=== PATIENT | female | born 1950 | race Caucasian/White ===

== ENCOUNTER → 2016-09-14 | Outpatient (CLI) | payer OTHER ==
[~2016-09-14] VITALS: Ht 162.6 cm; Wt 58.5 kg
[~2016-09-14] MED LIST: AMBEREN PO; CALCIUM PO; CORRECTOL5 M1 PO; FOLIC ACID1 MG PO; LIDOCAINE35.44 GM TP; METHOTREXATE 22.5 M1 PO; METHOTREXATE PO; MOBIC15 MG PO; MS CONTIN 60 MG60 M1 PO; MS CONTIN15 MG PO; MULTIVITAMINS PO; NEURONTIN 300300 M1 PO; NEURONTIN 300M300 M2 PO; OXYCONTIN PO; OXYCONTIN10 M1 PO; OXYCONTIN10 MG PO; OXYCONTIN20 M1 PO; OXYCONTIN20 MG PO; OXYCONTIN40 MG PO; PERCOCET 10-321 EACH PO; PROBIOTIC1 EAC1 PO; SULFASALAZINE500 M4 PO; VITAMIN B-122500 MCG SL; VITAMIN D1000 UNI1 PO; VOL-CARE RX TA1 EACH PO
--- NOTE | ~2016-09-14 | HPC ---
[facility] [address] [address] PAIN MANAGEMENT CONSULTATION Name: JACOB GONZALEZ Room #: REG [facility].#: [id number] Admission: 09/14/16 Attend Phys: Desirae Ennis MD Discharge: Date of : 54 Report #: [id number] THIS REPORT FOR: //name// CC: Sivan Dow MD DATE OF SERVICE: 09/14/2016 FOLLOWUP COMPLAINT: Things are going reasonably well. FOLLOWUP HISTORY: The patient is a 65-year-old female who has been followed in the pain clinic because of chronic pain associated with arthritis and lumbar radicular pain. She finds that her current medication regimen is helpful. She rates her pain as a 6/10. The weather has been changing rapidly and she has noted some increased discomfort in her arthritic pain. She has pain in her low back, hips, knees, elbows and wrist. Pain is made worse with prolonged sitting as well as with weather changes. PHYSICAL EXAMINATION: Blood pressure 131/76, pulse 76, respiratory rate 16, room air saturations are 100. The patient's height and weight indicate a BMI of 22.1. She feels that her medications are helpful. She has not noticed any sedation as a result of taking the medications. IMPRESSION: 1. Chronic arthritis treated with opioid therapy as well as lumbar radiculopathy 2. History of lumbar radiculopathy. RECOMMENDATIONS: We will continue with the patient's current medical regimen of Percocet 10/325 one p.o. t.i.d. She also used oxycodone one p.o. t.i.d. The patient will follow up in the future as needed. We would like to thank you for letting us participate in her care. We hope she continues to improve. <ELECTRONICALLY SIGNED> By: Dseirae Ennis MD 10/05/16 1018 [id number] [id number] Desirae Ennis MD /nt
[2016-09-14 08:52] VITALS: BP 131/76
== END | disposition home or self-care (01) ==
LOC: PAIN 07:04
DX: M13.88 Other specified arthritis, other site (principal); G89.29 Other chronic pain; M54.16 Radiculopathy, lumbar region

== ENCOUNTER → 2016-11-24 | Outpatient (CLI) | payer OTHER ==
[~2016-11-24] VITALS: Ht 162.6 cm; Wt 61.8 kg
--- NOTE | ~2016-11-24 | HPC ---
[facility] [place] [address] [address] [place] [address] PAIN MANAGEMENT CONSULTATION Name: JACOB GONZALEZ Room #: REG [facility].#: [id number] Admission: 11/24/16 Attend Phys: Desirae Ennis MD Discharge: Date of : 54 Report #: [id number] THIS REPORT FOR: //name// CC: Sivan Dow MD DATE OF SERVICE: 11/24/2016 FOLLOWUP COMPLAINT: Things are going reasonably well. FOLLOWUP HISTORY: The patient is a 65-year-old female who has been followed in the pain clinic because of chronic pain associated with arthritis. She also suffers from lumbar pain. Her current medications continue to be helpful. She finds Percocet helpful. She also uses Lidoderm ointment and notes this has been efficacious as well. She has returned today for renewal of her medications. She has taken the medication as prescribed. She would like to have her medications renewed. PHYSICAL EXAMINATION: Blood pressure is 148/78, pulse 70, respiratory rate 14, room air saturation is 98%, height 5 feet 4 inches, weight 167 kg, and BMI is 23. She has not fallen since we saw her last. IMPRESSION: 1. Chronic arthritis, treated with opioid therapy. 2. Lumbar radiculopathy, stable at this juncture. RECOMMENDATIONS: We will continue with her current medical regimen of Percocet 10/325 one p.o. t.i.d. and Lidoderm ointment 0.5% to apply to the affected joints as directed b.i.d. We would like to thank you for letting us participate in her care. We hope she continues to improve. By: [id number] Desirae Ennis MD /nt
[2016-11-24 10:34] VITALS: BP 148/78
== END ==
LOC: PAIN 07:34
DX: M54.16 Radiculopathy, lumbar region (principal); M19.90 Unspecified osteoarthritis, unspecified site

== ENCOUNTER → 2017-03-04 | Outpatient (CLI) | payer OTHER ==
[~2017-03-04] VITALS: Ht 162.6 cm; Wt 61.7 kg
[2017-03-04 08:28] VITALS: BP 136/73
== END | disposition home or self-care (01) ==
LOC: PAIN 06:52
DX: M54.16 Radiculopathy, lumbar region (principal); M13.80 Other specified arthritis, unspecified site; B02.9 Zoster without complications

== ENCOUNTER → 2017-06-08 | Outpatient (CLI) | payer OTHER ==
[~2017-06-08] VITALS: Ht 160 cm; Wt 62.9 kg
--- NOTE | ~2017-06-08 | HPC ---
[facility] [place] [address] PAIN MANAGEMENT CONSULTATION Name: JACOB GONZALEZ Room #: REG [facility].#: [id number] Admission: 06/08/17 Attend Phys: Desirae Ennis MD Discharge: Date of : 54 Report #: [id number] THIS REPORT FOR: //name// CC: Desirae Dow MD DATE OF SERVICE: 06/08/2017 FOLLOWUP COMPLAINT: Things are going pretty well, but now the winter in coming and will have more pain. FOLLOWUP HISTORY: The patient is a 66-year-old female who has been seen in the pain clinic because of chronic pain associated with arthritis. She continues to have pain and discomfort in the lumbar area. She has pain and discomfort, which is problematic in her hands. She finds that her current medical regimen of oxycodone 10 mg 1 p.o. t.i.d. continued to be efficacious. She has had no problems with them. She would like to have her medications renewed. She states that she keeps her medications in a controlled environment. PHYSICAL EXAMINATION: Blood pressure is 140/80, pulse 64, respiratory rate 16, room air saturation 100%. Height 5 foot 3, weight 138 pounds, BMI is 24. The patient feels that her blood pressure is elevated secondary to talking about President, Bernabe. She continues to complain of some pain and discomfort in her hands as well as pain in the low back area. She has not fallen since we saw her last. IMPRESSION: 1. Chronic arthritis, treated with opioid therapy. 2. Lumbar radicular pain, stable at this juncture. RECOMMENDATION: We will continue with her current regimen of Percocet one p.o. t.i.d. She finds that Lidoderm ointment is helpful as well. She will call us if she has any problems with her medications. We would like to thank you for letting us participate in her care. We hope she continues to improve. <ELECTRONICALLY SIGNED> By: Desirae Ennis MD 06/09/17 0822 [id number] [id number] Desirae Ennis MD /[facility]
[2017-06-08 10:16] VITALS: BP 140/80
== END ==
LOC: PAIN 07:03
DX: M13.88 Other specified arthritis, other site (principal)

== ENCOUNTER → 2017-08-26 | Outpatient (CLI) | payer OTHER ==
[~2017-08-26] VITALS: Ht 162.6 cm; Wt 63.0 kg
--- NOTE | ~2017-08-26 | HPC ---
[facility] [place] [address] PAIN MANAGEMENT CONSULTATION Name: JACOB GONZALEZ Room #: REG [facility].#: [id number] Admission: 08/26/17 Attend Phys: Desirae Ennis MD Discharge: Date of : 54 Report #: [id number] THIS REPORT FOR: //name// CC: WENDY Dow MD DATE OF SERVICE: 08/26/2017 FOLLOWUP COMPLAINT: The medicine is still helpful. FOLLOWUP HISTORY: The patient is a 66-year-old female who has been followed in the pain clinic because of chronic pain associated with arthritis. She continues to find that this medication is helpful. She continues to note changes associated with chronic arthritis. It involves her hands and her fingers. Use of these medications enable her to engage in activities which would be much more difficult without their use. She continues to be followed by her arthritis physician at [facility]. States that her medications are kept in a guarded area. She is aware of the possible complications associated with opioid medications. They include tolerance and addiction. She feels that her medications are working well and provide her ability to maintain a reasonable lifestyle given her current arthritic situation. ALLERGIES: PLAQUENIL. MEDICATIONS: Percocet 10/325 one p.o. q. 8 hours p.r.n., Lidoderm ointment topical b.i.d., bisacodyl 5 mg as needed, lactobacillus probiotic, vitamin B12, methotrexate 2.5 mg, gabapentin 300 mg 4 times daily, vitamin D3, Mobic 15 mg, sulfasalazine 500 mg b.i.d., multivitamin, folic acid. PHYSICAL EXAMINATION: HEENT: Unremarkable. NECK: Without adenopathy. HEART: Regular rate. ABDOMEN: Nontender. EXTREMITIES: The patient has findings consistent with arthritic changes in the distal phalanges. Rates her pain as a 4/5. Has some complaints of pain and discomfort in her low back, hips, bilateral knees, left elbow and left wrist associated with arthritis. IMPRESSION: 1. Chronic arthritis treated with opioid therapy. 2. Lumbar radicular pain, stable at this juncture. RECOMMENDATIONS: We discussed treatment options with the patient. We discussed [address] [address] PAIN MANAGEMENT CONSULTATION Name: JACOB GONZALEZ Room #: [facility]#: [id number] Admission: 08/26/17 Attend Phys: Desirae Ennis MD Discharge: Date of : 54 Report #: [id number] the CDC position on use of opioid medications on a chronic basis. The patient is within the guidelines of the CDC's recommendation. She finds that the medications are helpful. She keeps them in a controlled environment. Again, she is aware of the possible complications of opioid addiction and tolerance which could develop. We would like to thank you for letting us participate in her care. Hope she continues to improve. <ELECTRONICALLY SIGNED> By: Desirae Ennis MD 09/07/17 0837 [id number] [id number] Desirae Ennis MD /[facility]
[2017-08-26 08:08] VITALS: BP 123/56
== END ==
LOC: PAIN 07:08
DX: M54.16 Radiculopathy, lumbar region (principal); M13.852 Other specified arthritis, left hip; M13.851 Other specified arthritis, right hip; M13.862 Other specified arthritis, left knee; M13.861 Other specified arthritis, right knee; M13.822 Other specified arthritis, left elbow; M13.832 Other specified arthritis, left wrist; F11.90 Opioid use, unspecified, uncomplicated

== ENCOUNTER → 2017-11-30 | Outpatient (CLI) | payer OTHER ==
[~2017-11-30] VITALS: Ht 162.6 cm; Wt 65.0 kg
--- NOTE | ~2017-11-30 | HPC ---
[facility] [place] [address] PAIN MANAGEMENT CONSULTATION Name: JACOB GONZALEZ Room #: REG [facility]..#: [id number] Admission: 11/30/17 Attend Phys: Desirae Ennis MD Discharge: Date of : 54 Report #: [id number] THIS REPORT FOR: //name// CC: Sivan Dow MD DATE OF SERVICE: 11/30/2017 FOLLOWUP COMPLAINT: Here for medications and things are still going well. FOLLOWUP HISTORY: The patient is a 66-year-old female. As you recall, she has significant chronic arthritis. She continues to find medications helpful. Finds that the gabapentin as well as Percocet are quite helpful and enable her to engage in activities of daily living, she would not be able to without their use. Denies any problems with her medication. States that she is taking them as prescribed. They do not cause any problems with her sensorium. No GI complaints. She has had no problems with tolerance or addiction. She is aware of the media discussion of opioid medications and their problems. She feels that these medications are being used effectively by her and that they provide her a reasonable improvement in the lifestyle, she would not be able to enjoy without them. ALLERGIES: PLAQUENIL. MEDICATIONS: Percocet 10/325 one p.o. q. 8 hours p.r.n., Lidoderm ointment/topical b.i.d., bisacodyl 5 mg as needed, lactobacillus probiotic, vitamin B12, methotrexate 2.5 mg, gabapentin 300 mg q.i.d., vitamin D3, Mobic 15 mg, sulfasalazine 500 mg b.i.d., multivitamin, folic acid. PAIN CLINIC ASSESSMENT: 1. History of osteoarthritis/the patient is being treated for rheumatoid arthritis in the upper extremity, right lower extremity, left upper as well as left lower extremities. 2. Height 5 feet 4 inches, weight 143 pounds, BMI is 26. 3. Vital signs: Blood pressure 147/87, pulse 63, respiratory rate 14, room air saturation 99%. 4. Pain intensity: 02/05. 5. Fall risk: The patient has not fallen in the last 3 months. 6. Blood thinner: The patient is not on a blood thinner. 7. Hypertension: The patient is not being treated for hypertension. 8. Opioid therapy: The patient is on an opioid contract and receives her medications from only one pain clinic, which is ours. 9. Risk assessment tool is zero, which is low for opioid use. 10. [place] [address] PAIN MANAGEMENT CONSULTATION Name: JACOB GONZALEZ Room #: REG [facility]#: [id number] Admission: 11/30/17 Attend Phys: Desirae Ennis MD Discharge: Date of : 54 Report #: [id number] 11. Recreational drug use: Denies ever using recreational drugs. 12. Tobacco: Never smokes cigarettes. 13. Alcohol: Denies use of alcoholic beverages. PHYSICAL EXAMINATION: GENERAL: The patient is a well-developed, white female. Appears her stated age. She is alert and oriented x 3. Affect appears appropriate. Speech is smooth. HEENT: Normocephalic, atraumatic. Extraocular eye muscles intact. Hearing is within normal limits. Sclerae are normal. Mucous membranes are moist. NECK: Without adenopathy or JVD. Good range of motion. HEART: Regular rate. LUNGS: Clear. ABDOMEN: Nontender. MUSCULOSKELETAL: Without significant scoliosis, kyphosis or lordosis. The patient does have some changes consistent with rheumatoid arthritis involving her hands. Upper muscle strength is judged to be 5/5 and muscle strength is 4+/5 in the upper muscles area. Low back: The patient does have some pain and discomfort, which she sometimes notes pain with radiating down into the lumbar region. Muscle strength is judged to be 5/5 in the lower extremities. IMPRESSION: 1. Chronic arthritis treated with opioid therapy and with biologic agents. 2. Lumbar radicular pain, stable at this juncture. She has undergone epidural steroid injections in the past. RECOMMENDATIONS: We discussed treatment options with the patient. We will continue with her current medications. We have discussed the CDC is positioned on opioid medications. The patient states that she is taking the medication as prescribed, does not have any problems with them. She has clear sensorium with their use. Finds that they enable her to engage in activities of daily living she would not be able to without their use. Denies any GI problems. She keeps her medications in a controlled environment given that she has some young grandchildren who like to live with her and visit her. She will call us if she has any problems with her medications. We would like to thank you for letting us participate in her care. We hope she continues to improve. By: [id number] Desirae Ennis MD /[facility]
[2017-11-30 10:38] VITALS: BP 147/87
== END ==
LOC: PAIN 06:58
DX: M19.90 Unspecified osteoarthritis, unspecified site (principal); M54.16 Radiculopathy, lumbar region; F11.90 Opioid use, unspecified, uncomplicated; Z88.8 Allergy status to other drugs, medicaments and biological substances

== ENCOUNTER → 2018-03-03 | Outpatient (CLI) | payer OTHER ==
[~2018-03-03] VITALS: Ht 162.6 cm; Wt 63.0 kg
--- NOTE | ~2018-03-03 | HPC ---
[facility] [place] [address] PAIN MANAGEMENT CONSULTATION Name: JACOB GONZALEZ Room #: REG [facility].#: [id number] Admission: 03/03/18 Attend Phys: Desirae Ennis MD Discharge: Date of : 54 Report #: [id number] THIS REPORT FOR: //name// CC: WENDY Dow MD DATE OF SERVICE: 03/03/2018 FOLLOWUP COMPLAINT: Here for medications. FOLLOWUP HISTORY: The patient is a 67-year-old female who has been followed in the Pain Clinic. As you recall, she has significant chronic arthritis. She finds her medications helpful. Weather has been greater than 90 degrees for quite some time. States that she finds the warm weather of the summer much more pleasant than the cold weather in the winter. Finds that the cold weather makes her joints and arthritic changes more problematic. She would like to continue with her medications. She has no problems with the medications. She keeps her medications in a guarded area. She does have some young grandchildren. She finds the medications are still helpful. She is aware of the possible complications with opioid medications of addiction. She finds that they enable her to engage in activities of daily living and are not causing any problems with her mentation. ALLERGIES: PLAQUENIL. CURRENT MEDICATIONS: Percocet 10/325 one p.o. q. 8 hours p.r.n., Lidoderm/topical b.i.d., bisacodyl 5 mg as needed, lactobacillus probiotic, vitamin B12, methotrexate 2.5 mg, gabapentin 300 mg q.i.d., vitamin D3, Mobic 15 mg, sulfasalazine 500 mg b.i.d., multivitamin, folic acid. PAIN CLINIC ASSESSMENT: 1. History of osteoarthritis: The patient is being treated for rheumatoid arthritis involving the upper extremities, right lower extremity, left lower extremity as well as lower extremities. 2. Height 5 feet 4 inches, weight 139 pounds, BMI is 23.8. 3. Vital signs: Blood pressure 129/74, pulse 58, respiratory rate 14, room air saturation 98%. 4. Pain intensity: 4/10. 5. Fall risk: The patient has not fallen. 6. Blood thinner: The patient is not on any blood thinning medication. 7. History of hypertension: The patient is not using an antihypertensive medication. 8. Opioids greater than 6 weeks: The patient is using her medication as prescribed and gets [place] [address] PAIN MANAGEMENT CONSULTATION Name: JACOB GONZALEZ Room #: [facility]#: [id number] Admission: 03/03/18 Attend Phys: Desirae Ennis MD Discharge: Date of : 54 Report #: [id number] 9. Risk assessment tool: Low for use of opioid medication. 10. Functional assessment tool: 34/70 in the past. 11. Recreational drug use: The patient denies use of recreational drugs. 12. Tobacco: The patient never smoked. 13. Alcohol: The patient denies use of alcoholic beverages. PHYSICAL EXAMINATION: GENERAL: The patient is a well-developed, well-nourished, white female. She appears her stated age. She is alert and oriented x 3. Affect is appropriate. Speech is fluent. HEENT: Normocephalic, atraumatic. Extraocular eye muscles intact. Hearing within normal limits. Sclerae noninjected. Mucous membranes are moist. NECK: Without adenopathy or JVD. Good range of motion. HEART: Regular rate, S1 and S2. ABDOMEN: Nontender. LUNGS: Clear to auscultation. MUSCULOSKELETAL: Without significant scoliosis, kyphosis or lordosis. Upper hands are consistent with changes with arthritis, rheumatoid, involving her hands. Upper muscle strength is judged to be 5/5 for the major muscle groups in the upper extremity. Low back: The patient does have some pain and discomfort, which radiates down into her back and lumbar region. IMPRESSION: 1. Chronic arthritic pain, treated with opioid therapy and with biologic agents. 2. Lumbar radicular pain, stable at this juncture. RECOMMENDATIONS: We discussed treatment options with the patient. We will continue with her current medication. She will continue with her medication as prescribed. If she has any problems, she will call us. She will continue to remain active. We would like to thank you for letting us participate in her care. We hope she continues to improve. By: [id number] Desirae Ennis MD /nt
[2018-03-03 07:56] VITALS: BP 129/74
== END ==
LOC: PAIN 06:48
DX: M19.90 Unspecified osteoarthritis, unspecified site (principal); G89.29 Other chronic pain; M54.5 Low back pain

== ENCOUNTER → 2018-06-02 | Outpatient (CLI) | payer OTHER ==
[~2018-06-02] VITALS: Ht 162.6 cm; Wt 65.9 kg
--- NOTE | ~2018-06-02 | HPC ---
[facility] [place] [address] PAIN MANAGEMENT CONSULTATION Name: JACOB GONZALEZ Room #: REG [facility].#: [id number] Admission: 06/02/18 Attend Phys: Desirae Ennis MD Discharge: Date of : 54 Report #: [id number] THIS REPORT FOR: //name// CC: Desirae Dow DATE OF SERVICE: 06/02/2018 FOLLOWUP HISTORY: The patient is a 67-year-old female who has been followed in the pain clinic because of chronic arthritic changes. She does see a workers compensation legal secretary Sivan Johnson. Overall, she feels that things are going reasonably well. She has noted some changes because of the fluctuation in the temperature. It has gone from 80 degrees to 50 degrees and notes some discomfort with that. Overall, she feels that her medications are working reasonably well. She has had no complications with their use and would like to continue. She notes that her grandchild has had some seizures. The patient has been hospitalized in the process of trying to evaluate with the seizure activities. She had had seizures when she was born. She was somewhat premature. Overall, things are going reasonably well and they hope for the best. ALLERGIES: PLAQUENIL. MEDICATIONS: Percocet 10 mg one p.o. q. 8 hours p.r.n., Lidoderm/topical b.i.d., bisacodyl 5 mg as needed, lactobacillus probiotic, vitamin B12, methotrexate 2.5 mg, gabapentin 300 mg q.i.d., vitamin D3, Mobic 15 mg, sulfasalazine 500 mg b.i.d., multivitamin, folic acid. PAIN CLINIC ASSESSMENT/PQRS: 1. History of osteoarthritis. The patient is not being treated for osteoarthritis. She has been treated for rheumatoid arthritis with involvement of the upper extremity, right lower extremity, left lower extremity. 2. Height 5 feet 4 inches, weight 145 pounds, BMI is 24.9. 3. Vital Signs: Blood pressure 122/72, pulse 67, respiratory rate 14, room air saturation 98%. 4. Pain intensity 01/05. 5. Fall risk. The patient has not fallen in the last 3 months. 6. Blood thinner. The patient is not on a blood thinning medication. 7. Hypertension. The patient is not being treated for hypertension. 8. Opioid therapy greater than 6 weeks. The patient is being treated with opioid medications. 9. Risk assessment tool, low for opioid use. 10. Functional assessment 3470. 11. Recreational drug use. The patient has never used recreational drugs. 12. Tobacco: The patient has never smoked. 13. Alcohol: The patient denies use of alcoholic beverages on a regular basis. [address] [address] PAIN MANAGEMENT CONSULTATION Name: JACOB GONZALEZ Room #: REG [facility]#: [id number] Admission: 06/02/18 Attend Phys: Desirae Ennis MD Discharge: Date of : 54 Report #: [id number] PHYSICAL EXAMINATION: GENERAL: The patient is a well-developed, well-nourished white female. Appears her stated age. She is alert and oriented x 3. Her affect is appropriate. Speech is fluent. HEENT: Normocephalic, atraumatic. Extraocular eye muscles intact. Hearing is within normal limits. Sclerae nonicteric. Mucous membranes are moist. NECK: Without adenopathy or JVD. Good range of motion. HEART: Regular rate. S1, S2. ABDOMEN: Not tender. Bowel sounds problems are positive. LUNGS: Clear to auscultation. MUSCULOSKELETAL: Without significant scoliosis, kyphosis or lordosis. Upper extremity, hands are consistent with arthritic changes with some ulnar deviation. Upper extremity muscle strength is judged to be 5/5 for the major muscle groups in the upper extremity. Low back, the patient has a history of some pain and discomfort, which occasionally radiates down to her back and lumbar region. IMPRESSION: 1. Chronic lumbar chronic arthritic pain associated with rheumatoid arthritis, being treated with ____ and by her workers compensation legal secretary. 2. Lumbar radicular pain, stable at this juncture. RECOMMENDATIONS: We discussed treatment options with the patient. We will continue with her current medications. A script for medication has been written. She will call us if she has any concerns. We hope she continues to improve. Hopefully, her grandkids continues to improve with less seizure activity. <ELECTRONICALLY SIGNED> By: Desirae Ennis MD 06/12/18 1125 [id number] [id number] Desirae Ennis MD /nt
[2018-06-02 08:54] VITALS: BP 122/72
== END ==
LOC: PAIN 06:44
DX: M54.16 Radiculopathy, lumbar region (principal); G89.29 Other chronic pain; M45.6 Ankylosing spondylitis lumbar region; Z79.899 Other long term (current) drug therapy

== ENCOUNTER → 2018-08-18 | Outpatient (CLI) | payer OTHER | LOC: RAD 08-14 12:10 | DX: Z12.31 Encounter for screening mammogram for malignant neoplasm of breast (principal) ==

== ENCOUNTER → 2018-09-01 | Outpatient (CLI) | payer OTHER ==
[~2018-09-01] VITALS: Ht 162.6 cm; Wt 64.1 kg
--- NOTE | ~2018-09-01 | HPC ---
[facility] [place] [address] PAIN MANAGEMENT CONSULTATION Name: JACOB GONZALEZ Room #: REG [facility] M.R.#: [id number] Admission: 09/01/18 Attend Phys: Desirae Ennis MD Discharge: Date of : 54 Report #: [id number] THIS REPORT FOR: //name// CC: Desirae Dow MD DATE OF SERVICE: 09/01/2018 FOLLOWUP COMPLAINT: Here for medication renewal. HISTORY: The patient is a 67-year-old female who has been followed in the pain clinic because of chronic arthritis. As you recall, she suffers from rheumatoid arthritis. She is followed by Dr. Sivan Johnson at [facility]. She finds that her medications overall are going reasonably well. She would like to continue with her medications. She has had no complications at this juncture. She overall feels that things are going reasonably well and would like to have her medications. ALLERGIES: PLAQUENIL. CURRENT MEDICATIONS: Percocet 10 mg 1 p.o. q.8 hours, Lidoderm/topical b.i.d., bisacodyl 5 mg p.r.n., lactobacillus probiotic, multivitamin B12, methotrexate 2.5 mg, gabapentin 300 mg q.i.d., vitamin D3, Mobic 15 mg, sulfasalazine 500 mg b.i.d., multivitamin, folic acid. PAIN CLINIC ASSESSMENT/PQRS: 1. History of osteoarthritis. The patient is not being treated for osteoarthritis. The patient is being treated for rheumatoid arthritis with involvement of her upper extremity, right lower extremity, left lower extremity. 2. Height 5 feet 4 inches, weight 141 pounds, BMI is 24. 3. Vital Signs: Blood pressure 124/65, pulse 68, respiratory rate 18, room air saturation 100%. 4. Pain intensity /10. 5. Fall history. The patient has not fallen in the last 3 months. 6. Blood thinner. The patient is not on a blood thinning medication. 7. Hypertension. The patient is not being treated for hypertension. 8. Opioids greater than 6 weeks. The patient receives her medications from [facility], the pain clinic for opioids. 9. Risk assessment tool, low for opioid use. 10. Functional assessment tool . 11. Recreational drug use. The patient denies she has recreational drugs. 12. Tobacco: The patient denies use of tobacco. 13. Alcohol: The patient denies use of alcoholic beverages. PHYSICAL EXAMINATION: [facility] [address] [place] [address] PAIN MANAGEMENT CONSULTATION Name: JACOB GONZALEZ Room #: REG [facility]#: [id number] Admission: 09/01/18 Attend Phys: Desirae Ennis MD Discharge: Date of : 54 Report #: [id number] GENERAL: The patient is a well-developed, well-nourished white female. Appears her stated age. She is alert and oriented x 3. Affect is appropriate. Speech is fluent. The patient's granddaughter who is about 8 or 9 years old and is quite pleasant is with her. HEENT: Normocephalic, atraumatic. Extraocular eye muscles intact. Sclerae nonicteric. Mucous membranes are moist. NECK: Without adenopathy or JVD. HEART: Regular rate. S1, S2. ABDOMEN: Nontender. Bowel sounds present. LUNGS: Clear to auscultation without rhonchi. MUSCULOSKELETAL: Without significant scoliosis, kyphosis or lordosis. Upper extremity muscle strength is 4+/5 for the upper extremities. The patient's hands are consistent with arthritic changes with some ulnar deviation. The patient has a history of low back pain, which is not problematic and there are no complaints of this today. IMPRESSION: 1. Chronic lumbar radicular pain associated with rheumatoid arthritis. 2. Lumbar pain, stable. RECOMMENDATIONS: We discussed the use of opioid medications. The patient is aware that opioid medications can be problematic over a period of time secondary to development of addiction as well as tolerance. She keeps her medications out of the way. She has grandkids and is aware of the possible complications of their use. A script for her medications have been written. She will follow up in the future as needed. We would like to thank you for letting us participate in her care. We hope she continues to improve. By: [id number] Desirae Ennis MD /nt
[2018-09-01 08:28] VITALS: BP 124/65
--- NOTE | 2018-09-01 08:29 | NUR ---
Pain Clinic Assessment: 1. History of Osteoarthritis: Left Lower Extremity Right Lower Extremity History of Rheumatoid Arthritis: Left Upper Extremity Right Upper Extremity Left Lower Extremity Right Lower Extremity 2. Height: 5 ft. 4 in. 162.6 cm. Weight: 141.4 lb. oz. 64.139 kg. Patient's BMI: 24.3 3. Vital Signs: BP: 124/65 Pulse: 68 Resp: 18 Temp: 02 Sat: 100 ECG Mon: 4. Pain Intensity: 6 5. Fall Risk: Dizziness: Needs help standing or walking: Fallen in the last 3 months: Fall risk comments: 6. Patient on Blood Thinner: None 7. History of Hypertension: N 8. Opioid Therapy greater than 6 weeks: Y Opiate Contract Signed: 03/05/16 9. Risk Assessment Tool Provided: 0/LOW 10. Functional Assessment Tool: / 11. Recreational Drug Use: Never Drug Type: Tobacco Use: Never Smoker Tobacco Type: Amount or Packs/day: How Many Years: Alcohol Use: Past use Frequency: Quant:
== END ==
LOC: PAIN 07:15
DX: M54.16 Radiculopathy, lumbar region (principal); M06.9 Rheumatoid arthritis, unspecified; Z79.899 Other long term (current) drug therapy

== ENCOUNTER → 2018-12-01 | Outpatient (CLI) | payer OTHER ==
[~2018-12-01] VITALS: Ht 162.6 cm; Wt 64.5 kg
--- NOTE | ~2018-12-01 | HPC ---
[facility] [address] [place] [address] PAIN MANAGEMENT CONSULTATION Name: JACOB GONZALEZ Room #: REG [facility] M.R.#: [id number] Admission: 12/01/18 ������������������ Attend Phys: Desirae Ennis MD Discharge: ������������������ Date of : 54 Report #: [id number] THIS REPORT FOR: //name// CC: Desirae Dow MD DATE OF SERVICE: 12/01/2018 CHIEF COMPLAINT: Here for medication renewal, things are going reasonably well. HISTORY: The patient is a 67-year-old female. She has been followed in the pain clinic for quite some time. As you recall, she suffers from arthritis. Has some arthritic changes from rheumatoid in her hands. Also, has had some problems with her back. She has undergone epidural steroid injections in the distant past. She continues to have pain, which is still problematic. She feels that use of oxycodone medications enable her to stay quite active. Has pain in her hips posteriorly and has pain that radiates down into her knee. Also, has bilateral knee pain. Has some right low back discomfort. ALLERGIES: PLAQUENIL. CURRENT MEDICATIONS: Percocet 10 mg 1 p.o. q. 8 hours p.r.n., Lidoderm/topical b.i.d., bisacodyl 5 mg p.r.n., lactobacillus probiotic, multivitamin, vitamin B12, methotrexate 2.5 mg, gabapentin 300 mg q.i.d., vitamin D3, Mobic, sulfasalazine 500 mg b.i.d., multivitamins, and folic acid. PAIN CLINIC ASSESSMENT/PQRS: 1. Osteoarthritis. The patient has some arthritic changes in her low back area. She is currently being treated for rheumatoid arthritis. Has upper extremity involvement as well as some lower extremity problems: 2. Height 5 feet 4 inches, weight 142 pounds, BMI is 24.4. 3. Vital signs: Blood pressure 150/84, pulse 74, respiratory rate 16, room air saturation 100%. 4. Pain intensity 5-6/10. 5. Fall risk. The patient has not fallen in the last 3 months. 6. Blood thinner. The patient is not on a blood thinning medication. 7. Hypertension. The patient is not being treated for hypertension. 8. Opioids greater than 6 weeks. The patient [facility]. 9. Risk assessment tool, low for opioid use. 10. Functional assessment tool 34/70. 11. Recreational drug use. The patient denies use of recreational drugs. 12. Tobacco: The patient denies use of tobacco. 13. Alcohol: The patient denies use of alcoholic beverages. [facility] [address] [place] [address] PAIN MANAGEMENT CONSULTATION Name: JACOB GONZALEZ Room #: REG [facility] Chandu#: [id number] Admission: 12/01/18 ������������������ Attend Phys: Desirae Ennis MD Discharge: ������������������ Date of : 54 Report #: [id number] PHYSICAL EXAMINATION: GENERAL: The patient is a well-developed, well-nourished white female, appears her stated age. She is alert and oriented x 3. Her affect is appropriate. Speech is fluent. HEENT: Normocephalic, atraumatic. Extraocular eye muscles intact. Sclerae nonicteric. Mucous membranes are moist. NECK: Without adenopathy or JVD. HEART: Regular rate. ABDOMEN: Nontender. Bowel sounds present. LUNGS: Clear to auscultation. MUSCULOSKELETAL: Without significant scoliosis, kyphosis, or lordosis. Upper extremity muscle strength is judged to be 4+/5 for the upper extremities. The patient has some changes in her hand consistent with arthritic changes with some ulnar deviation of her fingers. History of low back pain. The patient has some pain in lower portion of her back as well as bilateral knee complaints. IMPRESSION: 1. Lumbar radicular pain associated with rheumatoid arthritis. 2. Chronic pain in the knees. 3. Lumbar pain, stable. RECOMMENDATIONS: We discussed treatment options with the patient. At this juncture, we will continue with her opioid medication. She feels this medication enables her to engage in activities, she would not be able to. She is aware of the problems with opioid medications. She has weaned her off of OxyContin. She uses Percocet. Overall, she feels that is doing a reasonable job in controlling her pain. She keeps her medications in a guarded area. She has some young grandchildren as well as young people around her home. States that she keeps her medications locked up. She is concerned about their safety as the number of cases of children using opioid medications from parents is problematic. A script for her medications have been written. She will follow up in the future as needed. She will continue with the Percocet one p.o. t.i.d. A total of 3 months medication has been written. We would like to thank you for letting us participate in her care. We hope she continues to improve. ��������������������������������������������� ���������������������������������������� By: ��������������������������������������������� [id number] Desirae Ennis MD /SYDNEE
[2018-12-01 08:07] VITALS: BP 150/84
--- NOTE | 2018-12-01 08:14 | NUR ---
Pain Clinic Assessment: 1. History of Osteoarthritis: Left Lower Extremity Right Lower Extremity History of Rheumatoid Arthritis: Left Upper Extremity Right Upper Extremity Left Lower Extremity Right Lower Extremity 2. Height: 5 ft. 4 in. 162.6 cm. Weight: 142.2 lb. oz. 64.501 kg. Patient's BMI: 24.4 3. Vital Signs: BP: 150/84 Pulse: 74 Resp: 16 Temp: 02 Sat: 100 ECG Mon: 4. Pain Intensity: 5-6 5. Fall Risk: Dizziness: N Needs help standing or walking: N Fallen in the last 3 months: N Fall risk comments: 6. Patient on Blood Thinner: None 7. History of Hypertension: N 8. Opioid Therapy greater than 6 weeks: Y Opiate Contract Signed: 03/05/16 9. Risk Assessment Tool Provided: 0/LOW 10. Functional Assessment Tool: 34/ 11. Recreational Drug Use: Never Drug Type: Tobacco Use: Never Smoker Tobacco Type: Amount or Packs/day: How Many Years: Alcohol Use: Past use Frequency: Quant:
== END ==
LOC: PAIN 06:50
DX: M06.88 Other specified rheumatoid arthritis, vertebrae (principal); I10 Essential (primary) hypertension; G89.29 Other chronic pain; M25.561 Pain in right knee; M25.562 Pain in left knee; Z88.8 Allergy status to other drugs, medicaments and biological substances; Z79.899 Other long term (current) drug therapy

== ENCOUNTER → 2019-02-21 | Outpatient (CLI) | payer OTHER ==
[~2019-02-21] VITALS: Ht 162.6 cm; Wt 65.1 kg
[2019-02-21 08:12] VITALS: BP 120/59
--- NOTE | 2019-02-21 08:24 | NUR ---
Pain Clinic Assessment: 1. History of Osteoarthritis: DENIES History of Rheumatoid Arthritis: Left Upper Extremity Right Upper Extremity Left Lower Extremity Right Lower Extremity 2. Height: 5 ft. 4 in. 162.6 cm. Weight: 143.6 lb. oz. 65.136 kg. Patient's BMI: 24.6 3. Vital Signs: BP: 120/59 Pulse: 62 Resp: 14 Temp: 02 Sat: 100 ECG Mon: 4. Pain Intensity: 7 5. Fall Risk: Dizziness: N Needs help standing or walking: N Fallen in the last 3 months: N Fall risk comments: 6. Patient on Blood Thinner: None 7. History of Hypertension: N 8. Opioid Therapy greater than 6 weeks: Y Opiate Contract Signed: 03/05/16 9. Risk Assessment Tool Provided: 0/LOW 10. Functional Assessment Tool: 11. Recreational Drug Use: Never Drug Type: Tobacco Use: Never Smoker Tobacco Type: Amount or Packs/day: How Many Years: Alcohol Use: Past use Frequency: Quant:
--- NOTE | 2019-02-22 14:11 | HPC ---
[facility] [address] [address] PAIN MANAGEMENT CONSULTATION Name: JACOB GONZALEZ Room #: REG [facility] MBimal.#: [id number] Admission: 02/21/19 ������������������ Attend Phys: Sasha Lawson Discharge: ������������������ Date of : 54 Report #: [id number] THIS REPORT FOR: //name// CC: Sasha Lawson Mike Dow DATE OF SERVICE: 02/21/2019 CHIEF COMPLAINT: Chronic low back pain and osteoarthritis. HISTORY OF PRESENT ILLNESS: This is a very pleasant 68-year-old female who returns to the pain clinic today for refill of her medications. She uses these to help with her chronic low back pain and her arthritis. She tells me recently that her pain has increased in her lower back on the right side. She feels that it radiates over the top of her hip into her right thigh down to her right calf. She tells me she has made an appointment with Dr. Coffey, her neurosurgeon for later in February. She believes that he will order an MRI. She is hopeful that she will not have to have further surgery, but she will await that visit. Her pain score today is 7/10, mostly had numbness and burning in her leg and achy feeling in her lower back. She tells me her pain is worse with sitting, rainy weather and cold, but better with her medications and she is better in the morning. She denies any problems with constipation that is not controlled with her [id number] medications. ALLERGIES: PLAQUENIL. CURRENT MEDICATIONS: Oxycodone 10/325 three times a day, lidocaine ointment, Correctol as needed, probiotic, vitamin B12, methotrexate, gabapentin 300 mg 1 in the morning, 2 at noon, and 1 at night, meloxicam, sulfasalazine, multivitamin and folic acid. PATIENT'S PQRS: She has osteoarthritis in her lumbar spine and she is also being treated for rheumatoid arthritis in her upper extremities. Height is 5 feet 4, weight is 143, BMI is 24. Vital signs 120/59, pulse of 62, respirations 14, oxygen sat is 100. Pain score is 7/10. Fall risk. Denies dizziness, does not need help walking or standing, has not fallen in the last 3 months. She is not on any blood thinners, does not take medicine for hypertension. Opioid therapy is greater than 6 weeks; therefore, an opiate signed contract is on the chart. Her risk assessment tool is low. Functional assessment is 34/70. Recreational drug use, she denies. She is not a smoker and does not drink alcohol. According to the prescription monitoring system, the patient is filling appropriately for her medications. She is due next week to have them filled again. There is a recent drug screen on the chart that is appropriate for the medications that we prescribed. [address] [address] PAIN MANAGEMENT CONSULTATION Name: JACOB GONZALEZ [id number] Admission: 02/21/19 ������������������ Attend Phys: Sasha Lawson Discharge: ������������������ Date of : 54 Report #: [id number] PHYSICAL EXAMINATION: GENERAL: This is a well-developed, well-nourished white female, who appears her stated age. She is alert and orientated. Her affect is appropriate and her speech is fluent. HEENT: Normocephalic, atraumatic. Extraocular eye muscles are intact. Mucous membranes are moist. NECK: Without adenopathy or JVD. MUSCULOSKELETAL: Without significant scoliosis, kyphosis, or lordosis. Upper extremity strength judged to be 4/5 in her upper extremities. She has arthritic changes in her hands with some ulnar deviation of her fingers, complains of right lumbar back pain today radiation into her hip down to anterior portion of her right thigh into her calf with numbness and burning present. Lower extremity strength judged to be 5/5 in all major muscle groups. The patient walks with a slightly antalgic gait. IMPRESSION: 1. Lumbar radiculopathy. 2. Rheumatoid arthritis. 3. Chronic pain in her bilateral knees. 4. Medication management under terms of written opioid agreement. We reviewed the fact that opiate medications are being used to provide analgesia adequate to support activities of daily living, not attempting to achieve a specific pain score on the 0-10 Visual Analog Scale. The current opiate medications are providing sufficient analgesia to allow the patient to participate in activities of daily living. The patient is not exhibiting any aberrant behavior suggestive of drug diversion. The patient is not having any adverse reactions to medications. The patient is not suffering from daytime somnolence or mental acuity changes. The patient is managing opiate-induced constipation with appropriate [id number] agents and dietary considerations. The patient was counseled on concern for caution with operating a motor vehicle while using opiate medications. A physical exam was performed and the patient's functional status was evaluated. All patients with back pain were advised against the bed rest greater than 4 days and were advised to return to normal activities. Pain score assessment was noted and the treatment plan was reviewed with the patient. All current medications, both prescribed and OTC were reviewed and reconciled on the electronic medical record. Tobacco screening was accomplished and smoking cessation was advised when indicated. BMI was noted and diet/exercise modification was recommended for all patients following outside normal parameters. I reviewed with the patient today their responsibilities to safeguard prescription medications, reviewed their responsibility to utilize medications [facility] [address] [place] [address] PAIN MANAGEMENT CONSULTATION Name: JACOB GONZALEZ Room #: REG [facility] M.Olivia.#: [id number] Admission: 02/21/19 ������������������ Attend Phys: Sasha JIMMY Lawson Discharge: ������������������ Date of : 54 Report #: [id number] only as prescribed by the physician. They are to seek and receive pain medications only from 1 physician group ( [facility]). They are to use 1 pharmacy and keep the clinic informed if they change pharmacies. Their responsibilities include making followup visits in a timely fashion and to avoid abrupt discontinuation of medication usage. Their responsibilities further include bringing their medications (bottles from the pharmacy with residual pills) to the visit for possible confirmation of pill counts and the patient understands it is their responsibility to submit to random drug screens to ensure both that the medications prescribed are present, and that no other controlled substances are present. All prescriptions provided today were generated electronically. PLAN: 1. We discussed treatment options with the patient today. At this time, she would like to continue her oxycodone medications. Scripts given for Percocet 10/325 t.i.d., #90 for today and 4-week release and 8-week release. This places the patient at the low end of the CDC guidelines; therefore, she is seen every 3 months in the Pain Clinic. 2. I informed the patient that if Dr. Coffey, her neurosurgeon does feel that an epidural would be beneficial,Dr. Ennis would be happy to perform that. It has been years since she had an epidural, which at that time were not helpful, but since her symptoms have changed, she may find some benefit of this. The patient agrees. She will make an appointment if he thinks that is needed. 3. Dr. Nelson Ennis did see the patient and collaborated care today. ��������������������������������������������� <ELECTRONICALLY SIGNED> ���������������������������������������� By: Sasha Lawson ��������������������������������������������� 02/22/19 [id number] Sasha Lawson /nt
== END ==
LOC: PAIN 06:48
DX: M54.16 Radiculopathy, lumbar region (principal); M25.562 Pain in left knee; M25.561 Pain in right knee; M06.9 Rheumatoid arthritis, unspecified; Z79.891 Long term (current) use of opiate analgesic

== ENCOUNTER → 2019-04-04 | Outpatient (CLI) | payer OTHER ==
[~2019-04-04] VITALS: Ht 162.6 cm; Wt 63.9 kg
--- NOTE | ~2019-04-04 | HPC ---
[facility] [address] [place] [address] PAIN MANAGEMENT CONSULTATION Name: JACOB GONZALEZ Room #: REG [facility] Reed.#: [id number] Admission: 04/04/19 Attend Phys: Desirae Ennis MD Discharge: Date of : 54 Report #: [id number] THIS REPORT FOR: //name// CC: Desirae Dow DATE OF SERVICE: 04/04/2019 CHIEF COMPLAINT: "The pain in my leg improved after the last injection, but I am still having some pain in the right spine and it goes around into my leg down into the knee." HISTORY: The patient is a 68-year-old female who has been followed in the pain clinic. She suffers from chronic pain. She has had rheumatoid arthritic pain for a number of years. She has had some problems with her back and has undergone back surgery in the past. She returns today after the last epidural injection. She noticed some benefit from the injection and now has less pain radiating down to the posterior portion of her leg. She does have pain in the anterior portion of her leg and it radiates down into the lower level of her knee. She has returned today with hopes that an injection would be helpful in this area. ALLERGIES: PLAQUENIL. CURRENT MEDICATIONS: Oxycodone 10/325 one p.o. t.i.d., Lidoderm ointment, Correctol as needed, probiotic, vitamin B12, methotrexate, gabapentin 300 mg 1 in the morning and 2 at noon, 1 at night, meloxicam, sulfasalazine, multivitamins and folic acid. PAIN CLINIC ASSESSMENT/PQRS: 1. The patient denies history of osteoarthritis. She is being treated for rheumatoid arthritis. 2. Height 5 feet 4 inches, weight 140 pounds, BMI is 24.2. 3. Vital Signs: Blood pressure 143/77, pulse 61, respiratory rate 16, room air saturation is 100%. 4. Pain intensity: 6 now, can increase to an 8 as the day wears on. 5. Fall history: The patient fell while walking with her dog on uneven ground. 6. Blood thinner. The patient is not on a blood thinning medication. 7. Hypertension. The patient is not being treated for hypertension. 8. Opioids greater than 6 weeks. The patient receives medication from one source, the pain clinic. 9. Risk assessment tool, low for opioid use. 10. Functional assessment tool, 34/70. 11. Recreational drug use. The patient denies use of recreational drugs. 12. Tobacco: The patient has never smoked. 13. Alcohol: The [place] [address] PAIN MANAGEMENT CONSULTATION Name: JACOB GONZALEZ Room #: REG [facility]#: [id number] Admission: 04/04/19 Attend Phys: Desirae Ennis MD Discharge: Date of : 54 Report #: [id number] PHYSICAL EXAMINATION: GENERAL: The patient is a well-developed, well-nourished white female. Appears her stated age. She is alert and oriented x 3. Her affect is appropriate. Speech is fluent. HEENT: Normocephalic, atraumatic. Extraocular eye muscles intact. Sclerae nonicteric. Mucous membranes are moist. NECK: Without adenopathy or JVD. MUSCULOSKELETAL: Without significant scoliosis, kyphosis or lordosis. Upper extremity muscle strength is somewhat decreased secondary to rheumatoid arthritis changes in her hands. She has some ulnar deviation of her fingers. Has pain that is radiating down the lower portion of her back in the L4-L5 dermatomal distribution changed from L5-S1 previously. IMPRESSION: 1. Lumbar radiculopathy at L4-L5. 2. Rheumatoid arthritis. 3. Chronic pain, which involving her knees bilaterally. 4. Medication management and opioids. RECOMMENDATIONS: We discussed treatment options with the patient. Risks and benefits of an epidural steroid injection were discussed. The patient is having pain in the L4-L5 dermatomal distribution on the right. We discussed the risks and benefits of the procedure. The patient has had surgery in the past, so we will proceed with a transforaminal approach. The patient is aware of the possible complications and agrees to proceed. PROCEDURE NOTE: The patient was taken to the procedure area. She was then assisted in getting on the examination table. Her back was sterilely prepped with a Betadine solution. It was allowed to dry. Fluoroscopy using anterior, posterior as well as lateral viewing were implemented. The patient's back was infiltrated at the L4-L5 area with 0.25% bupivacaine using a 25-gauge needle. A 20-gauge spinal needle using a transforaminal approach at L4-L5 was undertaken. After appropriate placement using fluoroscopy a total of 80 mg Depo-Medrol, 40 mg triamcinolone was slowly injected. We continued as the patient as we injected whether or not she was experiencing pain. She did experience some discomfort at which time we then repositioned the needle. The patient was then taken to the procedure area. She remained in the procedure area for an appropriate amount of time. Her pain level was judged to be 0 at the time of discharge. A total of 17 seconds fluoroscopy time was used. [address] [address] PAIN MANAGEMENT CONSULTATION Name: JACOB GONZALEZ Room #: REG [facility] Mari.#: [id number] Admission: 04/04/19 Attend Phys: Desirae Ennis MD Discharge: Date of : 54 Report #: [id number] We would like to thank you for letting us participate in her care. We hope she continues to improve. By: 3 Desirae Ennis MD /praveen
[2019-04-04 08:17] VITALS: BP 143/77
--- NOTE | 2019-04-04 08:29 | NUR ---
Pain Clinic Assessment: 1. History of Osteoarthritis: DENIES History of Rheumatoid Arthritis: Left Upper Extremity Right Upper Extremity Left Lower Extremity Right Lower Extremity 2. Height: 5 ft. 4 in. 162.6 cm. Weight: 140.8 lb. oz. 63.866 kg. Patient's BMI: 24.2 3. Vital Signs: BP: 143/77 Pulse: 61 Resp: 16 Temp: 02 Sat: 100 ECG Mon: 4. Pain Intensity: 6 NOW 8 DAY WEARS ON 5. Fall Risk: Dizziness: N Needs help standing or walking: N Fallen in the last 3 months: Y Fall risk comments: FELL WALKING THE DOG ON UNEVEN GROUND. 6. Patient on Blood Thinner: None 7. History of Hypertension: N 8. Opioid Therapy greater than 6 weeks: Y Opiate Contract Signed: 03/05/16 9. Risk Assessment Tool Provided: 0/LOW 10. Functional Assessment Tool: 34/70 11. Recreational Drug Use: Never Drug Type: Tobacco Use: Never Smoker Tobacco Type: Amount or Packs/day: How Many Years: Alcohol Use: Past use Frequency: Quant:
== END | disposition home or self-care (01) ==
LOC: PAIN 06:46
DX: M54.16 Radiculopathy, lumbar region (principal); G89.29 Other chronic pain; M06.9 Rheumatoid arthritis, unspecified; Z79.891 Long term (current) use of opiate analgesic; Z88.8 Allergy status to other drugs, medicaments and biological substances; Z79.899 Other long term (current) drug therapy

== ENCOUNTER → 2019-08-24 | Outpatient (CLI) | payer OTHER | LOC: RAD 08:44 | DX: Z12.31 Encounter for screening mammogram for malignant neoplasm of breast (principal) ==

== ENCOUNTER → 2019-08-24 | Outpatient (CLI) | payer OTHER ==
[~2019-08-24] VITALS: Ht 162.6 cm; Wt 65.3 kg
[2019-08-24 08:12] VITALS: BP 140/79
--- NOTE | 2019-08-24 08:22 | NUR ---
Pain Clinic Assessment: 1. History of Osteoarthritis: DENIES History of Rheumatoid Arthritis: B/L KNEES LEFT ELBOW, WRIST B/L HANDS/FINGERS 2. Height: 5 ft. 4 in. 162.6 cm. Weight: 144.0 lb. oz. 65.318 kg. Patient's BMI: 24.7 3. Vital Signs: BP: 140/79 Pulse: 65 Resp: 16 Temp: 02 Sat: 99 ECG Mon: 4. Pain Intensity: 6-TODAY, 8-9-BY EVENING 5. Fall Risk: Dizziness: N Needs help standing or walking: N Fallen in the last 3 months: N Fall risk comments: FELL WALKING THE DOG ON UNEVEN GROUND. 6. Patient on Blood Thinner: None 7. History of Hypertension: N 8. Opioid Therapy greater than 6 weeks: Y Opiate Contract Signed: 03/05/16 9. Risk Assessment Tool Provided: 0/LOW 10. Functional Assessment Tool: 34/70 11. Recreational Drug Use: Never Drug Type: Tobacco Use: Never Smoker Tobacco Type: Amount or Packs/day: How Many Years: Alcohol Use: Past use Frequency: Quant:
--- NOTE | 2019-08-28 14:24 | HPC ---
[facility] [address] [address] PAIN MANAGEMENT CONSULTATION Name: JACOB GONZALEZ Room #: REG [facility] Mari.#: [id number] Admission: 08/24/19 Attend Phys: Desirae Ennis MD Discharge: Date of : 54 Report #: [id number] THIS REPORT FOR: //name// CC: Desirae Dow DATE OF SERVICE: 08/24/2019 CHIEF COMPLAINT: "The pain improved for some weeks after the last injection, but it is still a problem, I am going to have surgery in the future." HISTORY: The patient is a 68-year-old female who has been followed in the pain clinic because of chronic pain. She has a history of rheumatoid arthritis. She has been treated in the pain clinic because of her chronic rheumatoid problem. She also has problems with her back. She has undergone back surgery in the past. She has followed up with her surgeon. She is scheduled in 2019 to undergo back surgery with placement of cages. She has been told that it is about 2 months' recovery after the surgery before she will be up and had it. Then, it will be 6 months to a year for her to continue to convalesce. She has quite a bit on her plate at this juncture. Her granddaughter is about to undergo surgery. Her granddaughter has cerebral palsy. They are going to do some surgeries on the back of her leg to lengthen some muscle/tendons in her Achilles area. She also has a daughter who is going to undergo surgery in the near future. She feels that her medications are helpful. She has returned today with the hopes of continuing the medications. ALLERGIES: PLAQUENIL. CURRENT MEDICATIONS: Oxycodone 10 mg 1 p.o. t.i.d., Lidoderm ointment, Correctol as needed, probiotic, vitamin B12, methotrexate, gabapentin 300 mg 1 in the morning, 2 at noon, 1 at night, meloxicam, sulfasalazine, multivitamins, folic acid. PAIN CLINIC ASSESSMENT AND PQRS: 1. The patient denies a history of joint replacements. She does have arthritic pains in her low back area and has had back surgery. She is being treated for rheumatoid arthritis. The patient is being treated for osteoarthritic changes in her knees. 2. Height 5 feet 4 inches, weight 144 pounds, BMI is 24.7. 3. Vital signs: Blood pressure 140/79, pulse 65, respiratory rate 16, room air saturation is 99%. 4. Pain intensity 6/10 today. Pain can rise to the level of 8-9 by the end of the day. 5. Fall risk. The patient did fall while walking her dog on an uneven ground. Did not have medical attention. 6. Blood thinner. The patient is not on a blood thinning medication. [address] [address] PAIN MANAGEMENT CONSULTATION Name: JACOB GONZALEZ Room #: REG [facility]#: [id number] Admission: 08/24/19 Attend Phys: Desirae Ennis MD Discharge: Date of : 54 Report #: [id number] 7. Hypertension. The patient is not being treated for hypertension. 8. Opioids greater than 6 weeks. 9. Risk assessment tool, low for opioid use. 10. Functional assessment tool . 11. Recreational drug use: The patient denies. 12. Tobacco: The patient has never smoked. 13. Alcohol. The patient denies use of alcoholic beverages. PHYSICAL EXAMINATION: GENERAL: The patient is a well-developed, well-nourished white female. Appears her stated age. She is alert and oriented x 3. Her affect is appropriate. Speech is fluent. HEENT: Normocephalic, atraumatic. Extraocular eye muscles intact. Sclerae nonicteric. Mucous membranes are moist. NECK: Without adenopathy or JVD. HEART: Regular rate. ABDOMEN: Nontender. MUSCULOSKELETAL: The patient without significant scoliosis, kyphosis or lordosis. The patient's upper extremity muscle strength judged to be 5-/5. Has some decreased muscle strength secondary to arthritic changes in her hands. Has some ulnar deviation of her fingers. The patient has pain, which radiates down the lower portion of her back in the L4-L5 dermatomal distribution. IMPRESSION: 1. Lumbar radiculopathy at L4-L5. 2. Rheumatoid arthritis. 3. Chronic pain involving her knees bilaterally. 4. Medication management using opioids for chronic pain. RECOMMENDATIONS: We discussed treatment options with the patient. At this juncture, we will continue with her current medication regimen. She felt that she got 3-4 weeks of improvement with the epidural injections. Overall, she feels that she is getting older. She would like to have her surgery as soon as possible. Her pain continues to be quite problematic. It rises to the level of 8-9 by the end of the day. She is considering surgery in the first part of next year. She has a number of family members who are going to undergo surgery. She would like to wait until they had their procedure because she could be beneficial in their care. A script for her medications has been rewritten. She will continue with oxycodone 10 mg 1 p.o. t.i.d., a total of 90 tablets have been written. Script for the next 3 months has been provided. The patient will call us if she has any concerns. [facility] [address] [place] [address] PAIN MANAGEMENT CONSULTATION Name: JACOB GONZALEZ Room #: REG [facility] Guerra.#: [id number] Admission: 08/24/19 Attend Phys: Desirae Ennis MD Discharge: Date of : 54 Report #: [id number] We would like to thank you for letting us participate in her care. We hope she continues to improve. <ELECTRONICALLY SIGNED> By: Desirae Ennis MD 08/28/19 1424 [id number] [id number] Desirae Ennis MD /PMT
== END ==
LOC: PAIN 06:39
DX: M54.16 Radiculopathy, lumbar region (principal); M06.9 Rheumatoid arthritis, unspecified; G89.29 Other chronic pain; Z79.899 Other long term (current) drug therapy

== ENCOUNTER → 2019-09-05 | Outpatient (CLI) | payer OTHER | LOC: ULTRA 08:46 | DX: N60.02 Solitary cyst of left breast (principal) ==

== ENCOUNTER → 2019-11-16 | Outpatient (CLI) | payer OTHER ==
[~2019-11-16] VITALS: Ht 162.6 cm; Wt 65.0 kg
[2019-11-16 08:25] VITALS: BP 156/89
--- NOTE | 2019-11-16 08:31 | NUR ---
Pain Clinic Assessment: 1. History of Osteoarthritis: DENIES History of Rheumatoid Arthritis: B/L KNEES LEFT ELBOW, WRIST B/L HANDS/FINGERS 2. Height: 5 ft. 4 in. 162.6 cm. Weight: 143.4 lb. oz. 65.046 kg. Patient's BMI: 24.6 3. Vital Signs: BP: 156/89 Pulse: 80 Resp: 18 Temp: 02 Sat: 98 ECG Mon: 4. Pain Intensity: 7-8 5. Fall Risk: Dizziness: N Needs help standing or walking: N Fallen in the last 3 months: N Fall risk comments: FELL WALKING THE DOG ON UNEVEN GROUND. 6. Patient on Blood Thinner: None 7. History of Hypertension: N 8. Opioid Therapy greater than 6 weeks: Y Opiate Contract Signed: 03/05/16 9. Risk Assessment Tool Provided: 0/LOW 10. Functional Assessment Tool: 34/70 11. Recreational Drug Use: Never Drug Type: Tobacco Use: Never Smoker Tobacco Type: Amount or Packs/day: How Many Years: Alcohol Use: Past use Frequency: Quant:
--- NOTE | 2019-11-23 16:39 | HPC ---
[facility] [place] [address] PAIN MANAGEMENT CONSULTATION Name: JACOB GONZALEZ Room #: REG [facility]..#: [id number] Admission: 11/16/19 Attend Phys: Desirae Ennis MD Discharge: Date of : 54 Report #: [id number] THIS REPORT FOR: cc: Mike Dow MD, Neal A. MD Brown,Desirae Sams MD ~ CC: Desirae Dow DATE OF SERVICE: 11/16/2019 CHIEF COMPLAINT: Medications are still helpful. I need a right hip replacement. HISTORY: The patient is a 68-year-old female who has been followed in the pain clinic because of chronic pain. She suffers from rheumatoid arthritis. She also has pain in the lumbar area. She has undergone epidural steroid injections in the past. She has had back surgery in the past. She has been told that she is having pain and discomfort as a result of her right hip. She has been told that she is a candidate for a hip replacement. She is having pain in her hip and it radiates down into her knee. She has some discomfort in the anterior portion of her knee as well. She does have bilateral knee discomfort. She is experiencing some pain in her left elbow. She has returned today for renewal of her medications. She is somewhat concerned regarding her grandchild. The grandchild has undergone some surgery for lengthening of the Achilles tendons. ALLERGIES: PLAQUENIL. CURRENT MEDICATIONS: Oxycodone 10 mg 1 p.o. t.i.d., Lidoderm ointment, Correctol p.r.n., probiotic, vitamin B12, methotrexate, gabapentin 300 mg 1 p.o. in the morning and 2 in the afternoon and 1 at night, meloxicam, sulfasalazine, multivitamins, folic acid. PAIN CLINIC ASSESSMENT AND PQRS: 1. The patient does have a history of joint replacements. She has some arthritic pain in her low back area. She has had back surgery. She has arthritis in her right hip with probable replacement in the future. 2. Height 5 feet 4 inches, weight 143 pounds, BMI is 24.6. 3. Vital Signs: Blood pressure 156/89, pulse 80, respiratory rate 18, room air saturation 98%. 4. Pain intensity 7-8/10. 5. Fall history: The patient fell while walking the dog. It was on uneven ground. 6. Blood thinner. The patient is not on a blood thinning medication. 7. Hypertension. The patient is not being treated for hypertension. 8. Opioids greater than 6 weeks. The [place] [address] PAIN MANAGEMENT CONSULTATION Name: JACOB GONZALEZ Room #: REG [facility]#: [id number] Admission: 11/16/19 Attend Phys: Desirae Ennis MD Discharge: Date of : 54 Report #: [id number] source the pain clinic. 9. Risk assessment tool. The patient is low. 10. Functional assessment tool 34/70. 11. Recreational drug use: The patient denies. 12. Tobacco: The patient has never smoked. 13. Alcohol. The patient denies frequent use of alcoholic beverages. PHYSICAL EXAMINATION: GENERAL: The patient is a well-developed, well-nourished white female. Appears her stated age. She is alert and oriented x 3. Her affect is appropriate. Speech is fluent. HEENT: Normocephalic, atraumatic. Extraocular eye muscles intact. Sclerae nonicteric. Mucous membranes are moist. NECK: Without adenopathy or JVD. HEART: Regular rate. ABDOMEN: Nontender. MUSCULOSKELETAL: Without significant scoliosis, kyphosis or lordosis. The patient's upper extremity muscle strength judged to be 5-/5 for the major muscle groups in the upper extremity. The patient has some decreased strength in her hand secondary to her arthritis. Notes some ulnar deviation of her fingers because of the rheumatoid arthritis. The patient has pain and discomfort that radiates down into the lower portion of back in the L4-L5 dermatomal distribution. The patient has pain and discomfort in the right hip area. IMPRESSION: 1. Lumbar radiculopathy, L4-L5. 2. Rheumatoid arthritis. 3. Chronic pain involving the knees bilaterally. 4. Hip pathology with the need for hip replacement in the future. 5. Medication management using opioid medication. RECOMMENDATIONS: We discussed treatment options with the patient. Risks and benefits of opioid medications were discussed. They can become problematic over a period of time because of tolerance. The patient is using the medication as prescribed. She has been taking these medications for a number of years. She continues reasonable dosing. She has returned today for renewal of her medication. Given the coronavirus situation, she is not sure when she might have her surgery. She has been provided with a script for her medications. She will continue with gabapentin 300 mg 1 p.o. a.m., to afternoon 1 at bedtime. She will also continue with oxycodone 10 mg 1 p.o. q.i.d. a total of 3 months of medication has been provided. The patient will call us if she has any concerns. [address] [address] PAIN MANAGEMENT CONSULTATION Name: JACOB GONZALEZ Room #: REG [facility]#: [id number] Admission: 11/16/19 Attend Phys: Desirae Ennis MD Discharge: Date of : 54 Report #: [id number] We would like to thank you for letting us participate in her care. We hope she continues to improve. <ELECTRONICALLY SIGNED> By: Desirae Ennis MD 11/23/19 1639 [id number] Desirae Ennis MD /[facility]
== END ==
LOC: PAIN 08:11
DX: M54.16 Radiculopathy, lumbar region (principal); M06.9 Rheumatoid arthritis, unspecified; G89.29 Other chronic pain; M25.561 Pain in right knee; M25.562 Pain in left knee; F11.20 Opioid dependence, uncomplicated; Z88.8 Allergy status to other drugs, medicaments and biological substances; Z79.84 Long term (current) use of oral hypoglycemic drugs; Z79.899 Other long term (current) drug therapy

== ENCOUNTER → 2020-01-23 | Outpatient (CLI) | payer OTHER ==
[~2020-01-23] VITALS: Ht 162.6 cm; Wt 64.2 kg
[~2020-01-23] MED LIST changes: +NEURONTIN300 MG PO
[2020-01-23 08:10] VITALS: BP 153/89
--- NOTE | 2020-01-23 08:13 | NUR ---
Pain Clinic Assessment: 1. History of Osteoarthritis: DENIES History of Rheumatoid Arthritis: B/L KNEES LEFT ELBOW, WRIST B/L HANDS/FINGERS 2. Height: 5 ft. 4 in. 162.6 cm. Weight: 141.6 lb. oz. 64.229 kg. Patient's BMI: 24.3 3. Vital Signs: BP: 153/89 Pulse: 82 Resp: 18 Temp: 02 Sat: 100 ECG Mon: 4. Pain Intensity: 8 5. Fall Risk: Dizziness: N Needs help standing or walking: N Fallen in the last 3 months: N Fall risk comments: FELL WALKING THE DOG ON UNEVEN GROUND. 6. Patient on Blood Thinner: None 7. History of Hypertension: N 8. Opioid Therapy greater than 6 weeks: Y Opiate Contract Signed: 03/05/16 9. Risk Assessment Tool Provided: 0/LOW 10. Functional Assessment Tool: 34/70 11. Recreational Drug Use: Never Drug Type: Tobacco Use: Never Smoker Tobacco Type: Amount or Packs/day: How Many Years: Alcohol Use: Past use Frequency: Quant:
--- NOTE | 2020-02-01 15:51 | HPC ---
[facility] [place] [address] PAIN MANAGEMENT CONSULTATION Name: JACOB GONZALEZ [id number] Admission: 01/23/20 Attend Phys: Desirae Ennis MD Discharge: Date of : 54 Report #: [id number] THIS REPORT FOR: cc: Mike Dow MD, Neal A. MD Brown, N. Wayne MD ~ CC: Desirae Dow DATE OF SERVICE: 01/23/2020 PRIMARY CARE PHYSICIAN: Mike Dow MD CHIEF COMPLAINT: "Here for medication renewal. I am thinking about having my right hip replaced." HISTORY: The patient is a 69-year-old female who has been followed in the pain clinic because of chronic pain. Because of rheumatoid arthritis, she continues to endure pain and discomfort. Epidural steroid injections in the past have not been very fruitful. She is continuing to have pain and discomfort in the back. She is contemplating right hip replacement, within about a week. She rates her pain as an 8/10. She is here for a refill of her medications. She also has some pain and discomfort involving her knee. She has pain that radiates up over the right hip and into the anterior portion of her knee. Has some discomfort in her left elbow. She notes that sitting can exacerbate her discomfort. Weather changes such as rain can worsen it. She notes that her pain worsens as the day wears on. Long walks are limited by the pain and discomfort. She sleeps in a recliner. ALLERGIES: PLAQUENIL. CURRENT MEDICATIONS: Oxycodone 10 mg 1 p.o. t.i.d., Lidoderm ointment, Correctol p.r.n., probiotic, vitamin B12, methotrexate, gabapentin 300 mg 1 p.o. every morning and 2 in the afternoon and 1 tablet at night, meloxicam, sulfasalazine, multivitamins, folic acid. PAIN CLINIC ASSESSMENT AND PQRS: 1. The patient does have a history of joint replacements. She has had some arthritic pain in her low back area. She has had back surgery. She has arthritis involving the right hip with desire for replacement in the future. 2. Height 5 feet 4 inches, weight 141 pounds, BMI is 24. 3. Vital Signs: Blood pressure 153/89, pulse 82, respiratory rate 18, room air saturation is 100%. 4. Pain intensity 8/10. 5. Fall history: The patient fell while walking the dog on uneven ground. 6. Blood thinner. The patient is not on a blood thinning medication. [address] [address] PAIN MANAGEMENT CONSULTATION Name: JACOB GONZALEZ Room #: REG [facility].#: [id number] Admission: 01/23/20 Attend Phys: Desirae Ennis MD Discharge: Date of : 54 Report #: [id number] 7. Hypertension. The patient is not being treated for hypertension. 8. Opioids greater than 6 weeks. The patient receives medication from the pain clinic. 9. Risk assessment tool, low for opioids. 10. Functional assessment tool 34/70. 11. Recreational drug use. The patient denies. 12. Tobacco: The patient has never smoked. 13. Alcohol. The patient denies frequent use of alcoholic beverages. PHYSICAL EXAMINATION: GENERAL: The patient is alert and oriented. She is a well-nourished white female. Appears her stated age. Speech is fluent. HEENT: Normocephalic, atraumatic. Extraocular eye muscles intact. Sclerae nonicteric. Mucous membranes are moist. NECK: Without adenopathy or JVD. HEART: Regular rate. ABDOMEN: Nontender. MUSCULOSKELETAL: Without significant scoliosis, kyphosis or lordosis. The patient has some pain and discomfort involving the hands, bilateral knees, left elbow, wrist and fingers. She has pain and discomfort involving the right hip. The patient will undergo right hip replacement in the near future. IMPRESSION: 1. Lumbar radiculopathy at L4-L5. 2. Right hip pathology. 3. Rheumatoid arthritis. 4. Chronic pain involving the knees bilaterally. 5. Medication management using opioid. RECOMMENDATIONS: We discussed treatment options with the patient. At this juncture, we will continue with her medications. A script for her medications have been provided. She is scheduled to undergo right hip replacement in the near future. She is somewhat nervous because of the COVID-19 pandemic. Overall, she feels that her medications are working reasonably well. A script for oxycodone 10 mg 1 p.o. 120 tablets have been provided for each month for the next 3 months. The patient will also continue with meloxicam as allowed by her primary physician. She will also continue with gabapentin. We would like to thank you for letting us participate in her care. We hope she continues to improve. We hope she gets a rapid recovery from her right hip replacement. <ELECTRONICALLY SIGNED> By: Desirae Ennis MD 02/01/20 1551 [id number] Desirae Ennis MD /SYDNEE
== END ==
LOC: PAIN 06:44
PROVIDERS: ATTEND Anesthesiology Pain Medicine
DX: M13.851 Other specified arthritis, right hip (principal); M54.5 Low back pain; I10 Essential (primary) hypertension; F11.90 Opioid use, unspecified, uncomplicated; Z96.698 Presence of other orthopedic joint implants; Z79.899 Other long term (current) drug therapy

== ENCOUNTER → 2020-03-14 | Outpatient (CLI) | payer OTHER ==
[~2020-03-14] VITALS: Ht 162.6 cm; Wt 62.5 kg
[2020-03-14 08:08] VITALS: BP 117/62
--- NOTE | 2020-03-14 08:13 | NUR ---
Pain Clinic Assessment: 1. History of Osteoarthritis: DENIES History of Rheumatoid Arthritis: B/L KNEES LEFT ELBOW, WRIST B/L HANDS/FINGERS 2. Height: 5 ft. 4 in. 162.6 cm. Weight: 137.8 lb. oz. 62.506 kg. Patient's BMI: 23.6 3. Vital Signs: BP: 117/62 Pulse: 50 Resp: 16 Temp: 02 Sat: 98 ECG Mon: 4. Pain Intensity: 4 5. Fall Risk: Dizziness: N Needs help standing or walking: N Fallen in the last 3 months: N Fall risk comments: FELL WALKING THE DOG ON UNEVEN GROUND. 6. Patient on Blood Thinner: None 7. History of Hypertension: N 8. Opioid Therapy greater than 6 weeks: Y Opiate Contract Signed: 03/05/16 9. Risk Assessment Tool Provided: 0/LOW 10. Functional Assessment Tool: 34/70 11. Recreational Drug Use: Never Drug Type: Tobacco Use: Never Smoker Tobacco Type: Amount or Packs/day: How Many Years: Alcohol Use: Past use Frequency: Quant:
--- NOTE | 2020-03-19 08:38 | HPC ---
[facility] [address] [address] PAIN MANAGEMENT CONSULTATION Name: JACOB GONZALEZ Room #: REG [facility]..#: [id number] Admission: 03/14/20 Attend Phys: Desirae Ennis MD Discharge: Date of : 54 Report #: [id number] THIS REPORT FOR: cc: Mike Dow MD, Neal A. MD Brown,Desirae Sams MD ~ CC: Desirae Dow DATE OF SERVICE: 03/14/2020 CHIEF COMPLAINT: "I had my hip replaced and I'm getting stronger." HISTORY: The patient is a 69-year-old female who has been followed in the pain clinic for quite some time. As you may recall, she has history of osteoarthritis involving her hip. She has had a right hip arthroplasty. She has been increasing her level of activity. The pain in her hip is doing reasonably well. Her most uncomfortable areas are down in the area of the right knee. She has been aggressively doing physical therapy. She rates her pain today as a 4/10. She is hoping that the knee pain will continue to improve. She has been given list of exercises to perform by her physical therapist. Overall, things are going reasonably well. She feels that the oxycodone is helpful. She has been taking aspirin instead of meloxicam. She will restart meloxicam in the near future. She also noticed that the gabapentin medication continues to be helpful. When she had to stop taking the gabapentin, she noted pain and discomfort and a burning sensation down into her left arm. This improved after she renewed her use of gabapentin. ALLERGIES: PLAQUENIL. CURRENT MEDICATIONS: Oxycodone 10 mg 1 p.o. t.i.d., Lidoderm ointment, Correctol, probiotic, vitamin B12, methotrexate, gabapentin 300 mg 1 p.o. a.m., 2 in the afternoon, 1 at night, meloxicam has been held, multivitamins, folic acid, sulfasalazine 500 mg. PAIN CLINIC ASSESSMENT AND PQRS: 1. The patient does have a history of arthritis and has had a right hip replacement recently. She has had back surgery. 2. The patient does have a history of rheumatoid arthritis involving her knees, left elbow, wrists, hands and fingers. 3. Height 5 feet 4 inches, weight 137 pounds, BMI 23.6. 4. Vital signs: Blood pressure 117/62, pulse 50, respiratory rate 16, room air saturation 98%. 5. Pain intensity 10. 6. Fall history: The patient has not fallen in the last 3 months. 7. Blood thinner. The patient is not on a blood thinning medication. [address] [address] PAIN MANAGEMENT CONSULTATION Name: JACOB GONZALEZ [id number] Admission: 03/14/20 Attend Phys: Desirae Ennis MD Discharge: Date of : 54 Report #: [id number] 8. Hypertension. The patient is not being treated for hypertension. 9. Opioids greater than 6 weeks. The patient receives medication from the pain clinic. 10. Risk assessment tool, low for opioid use. 11. Functional assessment tool 34/70. 12. Recreational drug use. The patient denies. 13. Tobacco: The patient has never smoked. 14. Alcohol. The patient denies use of alcoholic beverages. PHYSICAL EXAMINATION: GENERAL: The patient is a well-developed, well-nourished white female. Appears her stated age. She is alert and oriented x 3. Her affect is appropriate. Speech is fluent. HEENT: Normocephalic, atraumatic. Extraocular eye muscles intact. Sclerae nonicteric. Mucous membranes are moist. The patient is wearing a mask. HEART: Regular rate. CHEST: Clear. ABDOMEN: Nontender. MUSCULOSKELETAL: The patient without significant scoliosis, kyphosis or lordosis. Has some pain and discomfort in the left arm, which radiates down into the hand. Knee pain in the medial and lateral portion of the knee near the patella, well-healing scar in the right hip area. Some soreness, some decreased range of motion. IMPRESSION: 1. Right hip arthroplasty, which has improved. 2. Lumbar radiculopathy, L4-L5, left back pain. 3. Rheumatoid arthritis. 4. Chronic pain involving the knees bilaterally. MEDICATIONS: To manage pain using opioids, stable. RECOMMENDATIONS: We discussed treatment options with the patient. At this juncture, we will continue with her oxycodone medication. She will continue to take oxycodone medication 10 mg 1 p.o. q.i.d. She will continue to exercise as she is able to tolerate it. She feels that her back pain has improved somewhat since she has had the hip replacement. She had worked very hard at rehabbing. She may have overdone it a little bit. She is walking with a bit of a limp because of the pain, but overall she is improving. She is using the walker episodically at home. [address] [address] PAIN MANAGEMENT CONSULTATION Name: JACOB GONZALEZ Room #: [facility]#: [id number] Admission: 03/14/20 Attend Phys: Desirae Ennis MD Discharge: Date of : 54 Report #: [id number] We would like to thank you for letting us participate in her care. She will call us if she has any concerns. <ELECTRONICALLY SIGNED> By: Desirae Ennis MD 03/19/20 0838 [id number] Desirae Ennis MD /nt
== END ==
LOC: PAIN 06:49
PROVIDERS: ATTEND Anesthesiology Pain Medicine
DX: M54.16 Radiculopathy, lumbar region (principal); M06.9 Rheumatoid arthritis, unspecified; G89.29 Other chronic pain; Z96.641 Presence of right artificial hip joint; Z88.8 Allergy status to other drugs, medicaments and biological substances; Z79.899 Other long term (current) drug therapy

== ENCOUNTER → 2020-06-13 | Outpatient (CLI) | payer OTHER ==
[~2020-06-13] VITALS: Ht 162.6 cm; Wt 57.6 kg
--- NOTE | ~2020-06-13 | HPC ---
[facility] [place] [address] PAIN MANAGEMENT CONSULTATION Name: JACOB GONZALEZ Room #: REG [facility].#: [id number] Admission: 06/13/20 Attend Phys: Desirae Ennis MD Discharge: Date of : 54 Report #: [id number] CC: Desirae Dow DATE OF SERVICE: 06/13/2020 CHIEF COMPLAINT: Medications continue to be helpful. HISTORY: The patient is a 69-year-old female who has been followed in the pain clinic. She has a history of osteoarthritis involving her hips. She has had a right hip arthroplasty. She has noticed an increasing level of activity. Still has some pain. She feels that it is reasonably controlled with her medications. Does have some feelings of aching, numbness, constant burning and tingling in the area. Rates her pain as a 6/10. The weather has been called and she notes an increase in pain and discomfort with the weather change. Notes that her pain sometimes worsens as the day goes on. Her medications were helpful. Mornings are the best. Standing and rocking can sometimes be beneficial. Does limited stretching. Sometimes sleeps in a recliner. Feels that the medications of gabapentin are helpful. Does have a history of burning in her left arm, which has helped with the gabapentin. ALLERGIES: PLAQUENIL. CURRENT MEDICATIONS: Oxycodone 10/325, Lidoderm ointment, Correctol, probiotic, vitamin B12, methotrexate, gabapentin 300 mg 1 p.o. a.m., 2 tablets afternoon and 1 tablet evening, meloxicam in the past, multivitamins, folic acid, sulfasalazine 500 mg. PAIN CLINIC ASSESSMENT AND PQRS: 1. The patient does have a history of arthritis in her right hip, which has been replaced. 2. The patient does have problems with rheumatoid arthritis in her knees. She has some left elbow problems and wrist discomfort. 3. Bilateral hand and finger involvement from rheumatoid arthritis. 4. Height 5 feet 4 inches, weight 127 pounds, BMI is 21. 5. Vital signs: Blood pressure 125/59, pulse 49, respiratory rate 14, room air saturation 100%. 6. Pain intensity 02/05. 7. Fall risk. The patient fell while walking the dog on uneven ground in the past. 8. Blood thinner. The patient is not on a blood thinning medication. 9. Hypertension. The patient is not being treated for hypertension. 10. Opioids greater than 6 weeks. The patient received medication from the pain clinic. 11. Risk assessment tool, low for opioid use. 12. Functional assessment tool 50/70. 13. Recreational drug use: The patient denies. 14. Tobacco: The patient has never smoked. 15. Alcohol: The patient occasionally drinks alcoholic beverages. PHYSICAL EXAMINATION: GENERAL: The patient is a well-developed, well-nourished white female. Appears her stated age. She is alert and oriented x 3. Her affect is appropriate. Speech is fluent. HEENT: Normocephalic, atraumatic. Extraocular eye muscles intact. Sclerae nonicteric. Mucous membranes moist. The patient is wearing a facial mask. HEART: Regular rate. LUNGS: Clear. ABDOMEN: Nontender. MUSCULOSKELETAL: The patient without significant scoliosis, kyphosis or lordosis. The patient has well-healed scar in the lower portion of her back. History of discomfort in the left arm with pain radiating down to her hand, knee pain, medial and bilateral portion of the knee near the patella. Well-healing scar on the right hip. Some soreness and decreased range of motion. IMPRESSION: 1. Right hip arthroplasty, which has improved. 2. Lumbar radiculopathy, L4-L5. 3. Low back in the past. 4. Rheumatoid arthritis. 5. Chronic pain involving the knees bilaterally. RECOMMENDATIONS: We discussed treatment options with the patient. At this juncture, we will continue with her medications. She feels that these medications are helpful. She has taken the medication as prescribed. A script for her medications of meloxicam 15 mg 1 p.o. daily has been provided. The patient will also continue with oxycodone 10/325 one p.o. q. 4-6 hours p.r.n. She has been given a 3-month amount of medication. She will also continue with gabapentin 1 tablet morning, 2 tablets midday, and 1 tablet at bedtime. We would like to thank you for letting us participate in her care. She will call us if she has any concerns. She is aware that opioid medications over the long-term can become less effective because of development of tolerance. She is using her medications in an appropriate manner. She has not had any problems with the medications in the past. By: [id number] Desirae Ennis MD /nt
[2020-06-13 08:17] VITALS: BP 124/59
--- NOTE | 2020-06-13 08:29 | NUR ---
Pain Clinic Assessment: 1. History of Osteoarthritis: DENIES History of Rheumatoid Arthritis: B/L KNEES LEFT ELBOW, WRIST B/L HANDS/FINGERS 2. Height: 5 ft. 4 in. 162.6 cm. Weight: 127.0 lb. oz. 57.607 kg. Patient's BMI: 21.8 3. Vital Signs: BP: 124/59 Pulse: 49 Resp: 14 Temp: 02 Sat: 100 ECG Mon: 4. Pain Intensity: 6 5. Fall Risk: Dizziness: N Needs help standing or walking: N Fallen in the last 3 months: N Fall risk comments: FELL WALKING THE DOG ON UNEVEN GROUND. 6. Patient on Blood Thinner: None 7. History of Hypertension: N 8. Opioid Therapy greater than 6 weeks: Y Opiate Contract Signed: 03/05/16 9. Risk Assessment Tool Provided: 0/LOW 10. Functional Assessment Tool: 50/70 11. Recreational Drug Use: Never Drug Type: Tobacco Use: Never Smoker Tobacco Type: Amount or Packs/day: How Many Years: Alcohol Use: Past use Frequency: Quant:
== END ==
LOC: PAIN 06:45
PROVIDERS: ATTEND Anesthesiology Pain Medicine
DX: M54.16 Radiculopathy, lumbar region (principal); M06.9 Rheumatoid arthritis, unspecified; G89.29 Other chronic pain; M25.561 Pain in right knee; M25.562 Pain in left knee; Z88.8 Allergy status to other drugs, medicaments and biological substances; Z96.641 Presence of right artificial hip joint; Z79.899 Other long term (current) drug therapy

== ENCOUNTER → 2020-06-18 | Outpatient (CLI) | payer OTHER | LOC: BC 09:14 → NUC 09:14 → BC 16:08 | PROVIDERS: ATTEND Nurse Practitioner | DX: M81.0 Age-related osteoporosis without current pathological fracture (principal) ==

== ENCOUNTER → 2020-08-08 | Outpatient (CLI) | payer OTHER ==
[~2020-08-08] VITALS: Ht 162.6 cm; Wt 64.4 kg
[~2020-08-08] MED LIST changes: +SUPER THERAVIT1 EACH PO; +VITAMIN B-121000 MC2 SUBLING
[2020-08-08 08:11] VITALS: BP 120/72
--- NOTE | 2020-08-08 08:26 | NUR ---
Pain Clinic Assessment: 1. History of Osteoarthritis: DENIES History of Rheumatoid Arthritis: B/L KNEES LEFT ELBOW, WRIST B/L HANDS/FINGERS 2. Height: 5 ft. 4 in. 162.6 cm. Weight: 142.0 lb. oz. 64.411 kg. Patient's BMI: 24.4 3. Vital Signs: BP: 120/72 Pulse: 75 Resp: 14 Temp: 02 Sat: 98 ECG Mon: 4. Pain Intensity: 3 5. Fall Risk: Dizziness: N Needs help standing or walking: N Fallen in the last 3 months: N Fall risk comments: FELL WALKING THE DOG ON UNEVEN GROUND. 6. Patient on Blood Thinner: None 7. History of Hypertension: N 8. Opioid Therapy greater than 6 weeks: Y Opiate Contract Signed: 03/05/16 9. Risk Assessment Tool Provided: 0/LOW 10. Functional Assessment Tool: 50/70 11. Recreational Drug Use: Never Drug Type: Tobacco Use: Never Smoker Tobacco Type: Amount or Packs/day: How Many Years: Alcohol Use: Past use Frequency: Quant:
--- NOTE | 2020-08-08 12:27 | HPC ---
[facility] [address] [place] [address] PAIN MANAGEMENT CONSULTATION Name: JACOB GONZALEZ Room #: REG [facility].#: [id number] Admission: 08/08/20 Attend Phys: Sasha Lawson Discharge: Date of : 54 Report #: [id number] THIS REPORT FOR: cc: Mike Dow MD, Neal A. MD Hocker,Sasha MARQUEZ ~ DATE OF SERVICE: 08/08/2020 CHIEF COMPLAINT: Osteoarthritis affecting multiple joints. HISTORY OF PRESENT ILLNESS: This is a very pleasant 69-year-old female who is followed for her opioid medication refills today for her ongoing osteoarthritic issues and low back pain. Today, she is reporting a pain score of 3/10, located most bothersome today in her right hip and back as well as her elbow and wrist. She believes that the weather changes do affect her arthritis significantly as well as prolonged sitting. She feels the medication as well as ice and standing are beneficial in helping control her pain. She denies any significant side effects of constipation or daytime somnolence as a result of these medications and feels like overall she is on a good pain management regimen with her opioids meloxicam and gabapentin. ALLERGIES: PLAQUENIL. CURRENT LIST OF MEDICATIONS: Gabapentin, oxycodone, meloxicam, methotrexate, sulfasalazine, probiotic, folic acid, multivitamin. PQRS: 1. She does have a history of osteoarthritis in her right hip, which has been replaced. She is also treated for rheumatoid arthritis and various joints. 2. Height is 5 feet 4 inches, weight is 142, BMI is 24. 3. Vital signs 120/72, pulse is 75, respirations 14, oxygen sat is 98. 4. Pain score is 3/10. 5. Denies dizziness, does not need help walking or standing, has not fallen in the last 3 months. 6. The patient is not on any blood thinners or medicine for hypertension. 7. Opioid therapy is greater than 6 weeks; therefore, an opioid signed contract is on the chart. Risk assessment is low. Functional assessment is 50/70. 8. Recreational drug use, she denies. She is not a smoker and does not drink alcohol. According to the prescription monitoring system, she is due to fill her medications next week. Her morphine mEq according to the CDC guidelines is 60. We will check a random drug screen on her in her next visit as it has been greater than a year. PHYSICAL EXAMINATION: [facility] [address] [place] [address] PAIN MANAGEMENT CONSULTATION Name: JACOB GONZALEZ Room #: REG [facility]#: [id number] Admission: 08/08/20 Attend Phys: Sasha Lawson Discharge: Date of : 54 Report #: [id number] GENERAL: This is a well-developed, well-nourished, well-hydrated 69-year-old female who appears her stated age, placing her current pain score at 3/10 today. Her affect is appropriate and she is a good historian. HEENT: Normocephalic, atraumatic. Extraocular eye muscles are intact. She is wearing a facial mask. HEART: Regular rate. MUSCULOSKELETAL: She is without significant scoliosis, kyphosis or lordosis. She has discomfort in her left arm radiating down her hand and pain in several joints. She has a well-healed scar on her right hip from previous surgery. This continues to have tenderness. Lower extremity strength is symmetrical at 5/5. IMPRESSION: 1. Right hip arthroplasty. 2. Lumbar radiculopathy at the L4-L5. 3. Low back pain. 4. Rheumatoid arthritis. 5. Chronic pain involving multiple joints related to arthritis. 6. Medication management under written opioid agreement. We reviewed the fact that opiate medications are being used to provide analgesia adequate to support activities of daily living, not attempting to achieve a specific pain score on the 0-10 Visual Analog Scale. The current opiate medications are providing sufficient analgesia to allow the patient to participate in activities of daily living. The patient is not exhibiting any aberrant behavior suggestive of drug diversion. The patient is not having any adverse reactions to medications. The patient is not suffering from daytime somnolence or mental acuity changes. The patient is managing opiate-induced constipation with appropriate [id number] agents and dietary considerations. The patient was counseled on concern for caution with operating a motor vehicle while using opiate medications. A physical exam was performed and the patient's functional status was evaluated. All patients with back pain were advised against the bed rest greater than 4 days and were advised to return to normal activities. Pain score assessment was noted and the treatment plan was reviewed with the patient. All current medications, both prescribed and OTC were reviewed and reconciled on the electronic medical record. Tobacco screening was accomplished and smoking cessation was advised when indicated. BMI was noted and diet/exercise modification was recommended for all patients following outside normal parameters. I reviewed with the patient today their responsibilities to safeguard prescription medications, reviewed their responsibility to utilize medications only as prescribed by the physician. They are to seek and receive pain medications only from 1 physician group ([facility]). They are to use [address] [address] PAIN MANAGEMENT CONSULTATION Name: JACOB GONZALEZ Room #: REG [facility]#: [id number] Admission: 08/08/20 Attend Phys: Sasha Lawson Discharge: Date of : 54 Report #: [id number] pharmacy and keep the clinic informed if they change pharmacies. Their responsibilities include making followup visits in a timely fashion and to avoid abrupt discontinuation of medication usage. Their responsibilities further include bringing their medications (bottles from the pharmacy with residual pills) to the visit for possible confirmation of pill counts and the patient understands it is their responsibility to submit to random drug screens to ensure both that the medications prescribed are present, and that no other controlled substances are present. All prescriptions provided today were generated electronically. PLAN: 1. We discussed treatment options with the patient today. Overall, the patient is doing quite well on her current regimen and would like refills of her oxycodone. We will have Dr. Ennis send these electronically for , #120 for a total of 3 months. 2. She does obtain her gabapentin and meloxicam from her mail off and is not needing those medications currently. She will keep us apprised of when she does need refills of that medication. 3. The patient continues to be safe at home, wearing mask and not having any symptoms of COVID. The patient is seen today in collaboration with Dr. Ennis. <ELECTRONICALLY SIGNED> By: Sasha Lawson 08/08/20 1227 0838 1 Sasha Lawson /praveen
== END ==
LOC: PAIN 06:40
PROVIDERS: ATTEND Clinical Nurse Specialist Adult Health
DX: M54.16 Radiculopathy, lumbar region (principal); M06.9 Rheumatoid arthritis, unspecified; G89.29 Other chronic pain; Z79.891 Long term (current) use of opiate analgesic; Z96.641 Presence of right artificial hip joint

== ENCOUNTER → 2020-10-30 | Outpatient (CLI) | payer OTHER | LOC: BC 08:11 | PROVIDERS: ATTEND Family Medicine | DX: Z12.31 Encounter for screening mammogram for malignant neoplasm of breast (principal) ==

== ENCOUNTER → 2021-01-02 | Outpatient (CLI) | payer OTHER ==
[~2021-01-02] VITALS: Ht 162.6 cm; Wt 63.4 kg
[2021-01-02 08:39] VITALS: BP 161/80
--- NOTE | 2021-01-02 08:47 | NUR ---
Pain Clinic Assessment: 1. History of Osteoarthritis: DENIES History of Rheumatoid Arthritis: B/L KNEES LEFT ELBOW, WRIST B/L HANDS/FINGERS 2. Height: 5 ft. 4 in. 162.6 cm. Weight: 139.8 lb. oz. 63.413 kg. Patient's BMI: 24.0 3. Vital Signs: BP: 161/80 Pulse: 82 Resp: 16 Temp: 02 Sat: 98 ECG Mon: 4. Pain Intensity: 5 TO 7 5. Fall Risk: Dizziness: Y Needs help standing or walking: N Fallen in the last 3 months: N Fall risk comments: FELL WALKING THE DOG ON UNEVEN GROUND. 6. Patient on Blood Thinner: None 7. History of Hypertension: N 8. Opioid Therapy greater than 6 weeks: Y Opiate Contract Signed: 03/05/16 9. Risk Assessment Tool Provided: 0/LOW 10. Functional Assessment Tool: 50/70 11. Recreational Drug Use: Never Drug Type: Tobacco Use: Never Smoker Tobacco Type: Amount or Packs/day: How Many Years: Alcohol Use: Past use Frequency: Quant:
== END ==
LOC: PAIN 07:07
PROVIDERS: ATTEND Clinical Nurse Specialist Adult Health
DX: M19.90 Unspecified osteoarthritis, unspecified site (principal); M54.16 Radiculopathy, lumbar region; M06.9 Rheumatoid arthritis, unspecified; Z79.899 Other long term (current) drug therapy; Z79.891 Long term (current) use of opiate analgesic; Z96.641 Presence of right artificial hip joint; Z88.8 Allergy status to other drugs, medicaments and biological substances

== ENCOUNTER → 2021-04-24 | Outpatient (CLI) | payer OTHER ==
[~2021-04-24] VITALS: Ht 162.6 cm; Wt 63.5 kg
[2021-04-24 08:46] VITALS: BP 148/71
--- NOTE | 2021-04-24 08:49 | NUR ---
Pain Clinic Assessment: 1. History of Osteoarthritis: DENIES History of Rheumatoid Arthritis: B/L KNEES LEFT ELBOW, WRIST B/L HANDS/FINGERS 2. Height: 5 ft. 4 in. 162.6 cm. Weight: 140.0 lb. oz. 63.504 kg. Patient's BMI: 24.0 3. Vital Signs: BP: 148/71 Pulse: 64 Resp: 16 Temp: 02 Sat: 98 ECG Mon: 4. Pain Intensity: 4 5. Fall Risk: Dizziness: N Needs help standing or walking: N Fallen in the last 3 months: Y Fall risk comments: FELL WALKING THE DOG ON [address]VEN GROUND. 6. Patient on Blood Thinner: None 7. History of Hypertension: N 8. Opioid Therapy greater than 6 weeks: Y Opiate Contract Signed: 03/05/16 9. Risk Assessment Tool Provided: 0/LOW 10. Functional Assessment Tool: 11. Recreational Drug Use: Never Drug Type: Tobacco Use: Never Smoker Tobacco Type: Amount or Packs/day: How Many Years: Alcohol Use: Past use Frequency: Quant:
== END ==
LOC: PAIN 08:01
PROVIDERS: ATTEND Clinical Nurse Specialist Adult Health
DX: M06.9 Rheumatoid arthritis, unspecified (principal); M19.90 Unspecified osteoarthritis, unspecified site; M54.16 Radiculopathy, lumbar region; Z79.891 Long term (current) use of opiate analgesic; Z79.899 Other long term (current) drug therapy; Z96.641 Presence of right artificial hip joint

== ENCOUNTER → 2021-07-22 | Outpatient (CLI) | payer OTHER ==
[~2021-07-22] VITALS: Ht 162.6 cm; Wt 62.9 kg
[2021-07-22 08:18] VITALS: BP 141/71
--- NOTE | 2021-07-22 08:24 | NUR ---
Pain Clinic Assessment: 1. History of Osteoarthritis: Left Lower Extremity Right Lower Extremity History of Rheumatoid Arthritis: B/L KNEES LEFT ELBOW, WRIST B/L HANDS/FINGERS 2. Height: 5 ft. 4 in. 162.6 cm. Weight: 138.6 lb. oz. 62.868 kg. Patient's BMI: 23.8 3. Vital Signs: BP: 141/71 Pulse: 61 Resp: 16 Temp: 02 Sat: 100 ECG Mon: 4. Pain Intensity: 6 5. Fall Risk: Dizziness: N Needs help standing or walking: N Fallen in the last 3 months: N Fall risk comments: FELL WALKING THE DOG ON [address]VEN GROUND. 6. Patient on Blood Thinner: None 7. History of Hypertension: N 8. Opioid Therapy greater than 6 weeks: Y Opiate Contract Signed: 03/05/16 9. Risk Assessment Tool Provided: 0/LOW 10. Functional Assessment Tool: 11. Recreational Drug Use: Never Drug Type: Tobacco Use: Never Smoker Tobacco Type: Amount or Packs/day: How Many Years: Alcohol Use: Past use Frequency: Quant:
== END ==
LOC: PAIN 07:57
PROVIDERS: ATTEND Anesthesiology Pain Medicine
DX: M54.16 Radiculopathy, lumbar region (principal); M25.551 Pain in right hip; M25.561 Pain in right knee; M25.562 Pain in left knee; M06.9 Rheumatoid arthritis, unspecified; Z96.641 Presence of right artificial hip joint; Z88.8 Allergy status to other drugs, medicaments and biological substances; Z79.899 Other long term (current) drug therapy

== ENCOUNTER → 2021-10-23 | Outpatient (CLI) | payer OTHER ==
[~2021-10-23] VITALS: Ht 162.6 cm; Wt 64.4 kg
[2021-10-23 07:59] VITALS: BP 144/63
--- NOTE | 2021-10-23 08:03 | NUR ---
Pain Clinic Assessment: 1. History of Osteoarthritis: Left Lower Extremity Right Lower Extremity History of Rheumatoid Arthritis: B/L KNEES LEFT ELBOW, WRIST B/L HANDS/FINGERS 2. Height: 5 ft. 4 in. 162.6 cm. Weight: 142.0 lb. oz. 64.411 kg. Patient's BMI: 24.4 3. Vital Signs: BP: 144/63 Pulse: 52 Resp: 16 Temp: 02 Sat: 100 ECG Mon: 4. Pain Intensity: 5 5. Fall Risk: Dizziness: N Needs help standing or walking: N Fallen in the last 3 months: N Fall risk comments: FELL WALKING THE DOG ON [address]NEVEN GROUND. 6. Patient on Blood Thinner: None 7. History of Hypertension: N 8. Opioid Therapy greater than 6 weeks: Y Opiate Contract Signed: 03/05/16 9. Risk Assessment Tool Provided: 0/LOW 10. Functional Assessment Tool: 11. Recreational Drug Use: Never Drug Type: Tobacco Use: Never Smoker Tobacco Type: Amount or Packs/day: How Many Years: Alcohol Use: Past use Frequency: Quant:
== END ==
LOC: PAIN 07:01
PROVIDERS: ATTEND Anesthesiology Pain Medicine
DX: G89.29 Other chronic pain (principal); M25.512 Pain in left shoulder; M79.602 Pain in left arm; M16.11 Unilateral primary osteoarthritis, right hip; M54.16 Radiculopathy, lumbar region; M06.80 Other specified rheumatoid arthritis, unspecified site; M25.561 Pain in right knee; M25.562 Pain in left knee; Z88.8 Allergy status to other drugs, medicaments and biological substances; Z79.899 Other long term (current) drug therapy